=== PATIENT | male | born 1960 | race American Indian/Alaskan Native ===

== ENCOUNTER 2018-02-19 09:21 | Emergency (ER) | payer BC, SELFPAY ==
[2018-02-19 09:49] VITALS: BP 148/92; PULSE 100; RESP 13; TEMP 36.9; O2SAT 100
--- NOTE | 2018-02-19 09:52 | DI.RAD.S_ITS ---
PROCEDURE: XR FINGER RT MIN 2V INDICATIONS: r thumb TECHNIQUE: AP hand, 2 views of the right first finger(s) acquired. COMPARISON: None. FINDINGS: Bones: No fractures or dislocations. No suspicious bony lesions. Soft tissues: No suspicious soft tissue calcifications. IMPRESSION: No fracture. No osseous lesion. If there are persistent symptoms or clinical suspicion for pathology, then repeat radiographs or advanced imaging (CT, MRI or bone scan) should be considered for further evaluation. Dictated by: Aundrea Escudero MD, PhD on 02/19/2018 at 10:12 Approved by: Aundrea Escudero MD, PhD on 02/19/2018 at 10:13
--- NOTE | 2018-02-19 11:14 | ED.WOUNDLAC ---
HPI - Wound/Laceration General Chief Complaint: Wound/Laceration Stated Complaint: sliced finger with circular saw Time Seen by Provider: 02/19/18 10:14 History of Present Illness HPI narrative: Right thumb laceration with a table saw at the PIP joint just prior to arrival. Tendon is visualized. No bone is visualized. Denies numbness or tingling actually has full range of motion Related Data Previous Rx's Medication Instructions Recorded clotrimazole 1 gm TOPICAL BID #30 gm 09/22/17 triamcinolone acetonide 1 andrae TOPICAL BID #30 gm 09/22/17 cephalexin [Keflex] 500 mg PO TID #21 cap 02/19/18 hydrocodone-acetaminophen [[place]] 1 tab PO Q4-6H PRN #10 tab 02/19/18 Review of Systems Review of Systems GENERAL: Denies chills,fever HEENT: Denies throat pain RESPIRATORY: Denies dyspnea, cough, wheezing CARDIOVASCULAR: Denies chest pain, palpitations GASTROINTESTINAL: Denies nausea, vomiting MUSCULOSKELETAL: Denies extremity pain, injury SKIN: + laceration, see HPI NEUROLOGIC: Denies weakness, dizziness, headache, numbness 8 point review of systems is negative except for those stated above and HPI Exam Initial Vital Signs Initial Vital Signs: Vital Signs Temperature 98.5 F 02/19/18 09:49 Pulse Rate 100 H 02/19/18 09:49 Respiratory Rate 13 02/19/18 09:49 Blood Pressure 148/92 H 02/19/18 09:49 Pulse Oximetry 100 02/19/18 09:49 GENERAL: Well-appearing, well-nourished and in no acute distress. CARDIOVASCULAR: peripheral pulses in tact, cap refill <2 sec RESPIRATORY: No respiratory distress, speaks in full sentences without difficulty EXTREMITIES: Normal range of motion, no clubbing or edema. Neurovascularly intact NEUROLOGICAL: Cranial nerves II through XII grossly intact. Normal gait and speech. Left He is able to flex and extend fully good opposition abduction and abduction. Tendon is identified it does seem to be intact fascia around is partially lacerated. He has cap refill less than 2 sec good radial pulse. SKIN: Warm, dry, no petechiae, no rashes or lesions. Procedures Laceration Repair Laceration 1: Site: hand Side (If applicable): right Size (cm): 4 Description: stellate Depth: involves muscle layer Local Anesthetic: lidocaine 1% and bupivacaine 0.25% Amount of anesthesia used (mL): 4 Pre-repair: wound explored, irrigated extensively and deep structures intact Skin layer closed with: nylon Size (cm): 4-0 Number of sutures: 7 Technique: simple, interrupted Subcutaneous layer closed with: vicryl Size: 5-0 Number of sutures: 3 Number of sutures: 7 Course Orders Ordered: Discontinued Medications Diphtheria/Tetanus/Acell Pertussis (Adacel) 0.5 ml IM .ONCE ONE Stop: 02/19/18 11:34 Last Admin: 02/19/18 11:35 Dose: 0.5 ml Vital Signs - 8 hr 02/19/18 09:49 Temperature 98.5 F Pulse Rate 100 H Respiratory Rate 13 Blood Pressure 148/92 H Pulse Oximetry 100 MDM - Wound/Laceration Imaging Data Hand x-ray right: Radiologist's impression: PROCEDURE: XR FINGER RT MIN 2V INDICATIONS: r thumb TECHNIQUE: AP hand, 2 views of the right first finger(s) acquired. COMPARISON: None. FINDINGS: Bones: No fractures or dislocations. No suspicious bony lesions. Soft tissues: No suspicious soft tissue calcifications. IMPRESSION: No fracture. No osseous lesion. If there are persistent symptoms or clinical suspicion for pathology, then repeat radiographs or advanced imaging (CT, MRI or bone scan) should be considered for further evaluation. Dictated by: Aundrea Escudero MD, PhD on 02/19/2018 at 10:12 Discharge Plan Departure Patient Disposition: Home, Self-Care Clinical Impression: Laceration of skin of right thumb Discharge Date/Time: 02/19/18 12:16 Interventions: ED Discharge Assessment Last Done: 02/19/18 12:16 Instructions: DI for Laceration Repair -- Complex Suture, DI for Laceration Repair -- Finger Activity Restrictions/Additional Instructions: *You have been diagnosed with right thumb laceration *What to do: It does not appear you're tendon was involved removing it quite well but probably some fascia. Should follow up with hand surgeon none the last. Keep splint on his while active and and well sutures are in. -have sutures removed in about 7 days as with either Orthopedics or primary care provider -no soaking in water -they and cleaning with soap and water is recommended *Continue to take medications as directed -Keflex 500 mg 3 times a -[place] 1 tablet every 6 hr if needed for severe -Motrin 800 mg every 8 hr if needed for [id number] *Follow up with your primary care provider in 2-3 days, call Orthopedics Wednesday to schedule follow-up appointment for some a laceration *Return to ER if you should have any new, worsening or concerning symptoms Prescriptions: New hydrocodone-acetaminophen [[place]] 5-325 mg tablet 1 tab PO Q4-6H PRN (Reason: pain) Qty: 10 RF: 0 cephalexin [Keflex] 500 mg capsule 500 mg PO TID Qty: 21 RF: 0 No Action triamcinolone acetonide 0.5 % cream 1 andrae Topical BID Qty: 30 RF: 0 clotrimazole 1 % cream 1 gm Topical BID Qty: 30 RF: 0 Referrals: [facility] [Outside]
[2018-02-19] MEDS: TET,DIPH,PERTUSS(ACELL),VAC/PF 0.5 ML SYRINGE IM (11:35)
--- NOTE | 2018-02-19 12:14 | PC.NURSE ---
dressing to rt thumb, metal splint and kerlex.
[2018-02-19 12:16] VITALS: BP 126/91; PULSE 90; RESP 18; O2SAT 97
== END 2018-02-19 12:16 | disposition home or self-care (01) ==
PROVIDERS: Emergency Provider Emergency Medicine
DX: S61.011A Laceration without foreign body of right thumb without damage to nail, initial encounter (principal); W31.2XXA Contact with powered woodworking and forming machines, initial encounter
CPT/HCPCS: 12002; 73140; 90471; 99283; 90715

== ENCOUNTER → 2018-04-05 09:08 | Outpatient (CLI) | payer BC, SELFPAY | PROVIDERS: Visit Provider Urology | DX: R97.20 Elevated prostate specific antigen [PSA] (principal) | CPT/HCPCS: 36415; 84153 ==

== ENCOUNTER → 2018-10-12 09:16 | Outpatient (CLI) | payer BC, SELFPAY ==
[2018-10-13 14:49] LABS: PSA Free % 20 % (calc) (> 25); PSA, Total 4.9 ng/mL (< 4.1)
== END ==
PROVIDERS: Visit Provider Urology
DX: R97.20 Elevated prostate specific antigen [PSA] (principal)
CPT/HCPCS: 36415; 84153; 84154

== ENCOUNTER → 2019-01-16 07:08 | Outpatient (CLI) | payer BC, SELFPAY ==
[2019-01-16 10:30] LABS: Prostate Specific Antigen 4.08 ng/mL (0.10-4.00)
== END ==
PROVIDERS: Visit Provider Urology
DX: R97.20 Elevated prostate specific antigen [PSA] (principal)
CPT/HCPCS: 36415; 84153

== ENCOUNTER → 2019-07-05 15:09 | Outpatient (CLI) | payer BC, SELFPAY ==
[2019-07-05 16:28] LABS: Cholesterol 222 mg/dL (140-199); HDL Cholesterol 36 mg/dL (40-60); LDL Cholesterol Calculated 145 mg/dL (<100); Triglycerides 204 mg/dL (35-150)
[2019-07-05 16:44] LABS: Vitamin D 25 Hydroxy (D3) 24.9 ng/mL (30.0-100.0)
== END ==
PROVIDERS: PCP Student in an Organized Health Care Education/Training Program; Visit Provider Student in an Organized Health Care Education/Training Program
DX: Z13.220 Encounter for screening for lipoid disorders (principal); E55.9 Vitamin D deficiency, unspecified
CPT/HCPCS: 36415; 80061; 82306

== ENCOUNTER → 2020-01-15 08:22 | Outpatient (CLI) | payer BC, SELFPAY ==
[2020-01-16 08:27] LABS: PSA Free % 23.9 % (.); PSA, Total 3.3 ng/mL (0.0-4.0)
== END ==
PROVIDERS: PCP Student in an Organized Health Care Education/Training Program; Referring Provider Urology; Visit Provider Urology
DX: R97.20 Elevated prostate specific antigen [PSA] (principal)
CPT/HCPCS: 36415; 84153; 84154

== ENCOUNTER → 2020-08-19 07:53 | Outpatient (CLI) | payer BC, SELFPAY ==
[2020-08-19 12:18] LABS: Prostate Specific Antigen 3.98 ng/mL (0.10-4.00)
== END ==
PROVIDERS: PCP Student in an Organized Health Care Education/Training Program; Referring Provider Urology; Visit Provider Urology
DX: R97.20 Elevated prostate specific antigen [PSA] (principal)
CPT/HCPCS: 36415; 84153

== ENCOUNTER → 2021-08-25 09:12 | Outpatient (CLI) | payer BC, SELFPAY ==
[2021-08-26 05:37] LABS: PSA Free % 28.4 % (.); PSA, Total 3.2 ng/mL (0.0-4.0)
== END ==
PROVIDERS: PCP Student in an Organized Health Care Education/Training Program; Referring Provider Physician Assistant Medical; Visit Provider Physician Assistant Medical
DX: R97.20 Elevated prostate specific antigen [PSA] (principal)
CPT/HCPCS: 36415; 84153; 84154

== ENCOUNTER → 2022-09-21 07:43 | Outpatient (CLI) | payer BC, SELFPAY | PROVIDERS: PCP Student in an Organized Health Care Education/Training Program; Referring Provider Physician Assistant Medical; Visit Provider Physician Assistant Medical | DX: R97.20 Elevated prostate specific antigen [PSA] (principal) | CPT/HCPCS: 36415; 84153 ==

== ENCOUNTER 2023-08-08 17:42 | Emergency (ER) | payer MEDICARE, BC, SELFPAY ==
[2023-08-08 17:45] VITALS: BP 155/89; PULSE 93; RESP 18; TEMP 37.2; O2SAT 97; BMI 27.7
--- NOTE | 2023-08-08 18:18 | ED.EPISTAXIS ---
HPI - Epistaxis <Katy Messer PA-C - Last Filed: 08/08/23 18:25> General Chief complaint: Nasal Problem Stated complaint: bloody nose Time Seen by Provider: 08/08/23 18:15 Source: patient Mode of arrival: Ambulatory History of Present Illness HPI Narrative: Patient is a 63-year-old male who presents with nosebleed. He reports a history of nosebleeds. He had a cauterization in the left nare about 12 years ago. He had a small amount of bleeding this morning and then a larger nosebleed this afternoon after he gently blew his nose. He notes that there was bleeding from both nares today. The bleeding has stopped since he got here after applying pressure. He bled for about 15 minutes today. He wonders if his house is too try, although he monitors the humidity and it is about 55%. He has noticed that sleeping near the furnace vent makes his nosebleeds worsened so he sleeps in the living room now. Last year he used a nasal moisturizing spray, which may have helped. His last nosebleed was 2.5 months ago. He does not take any blood thinners, including no aspirin and no NSAIDs. He does not drink alcohol. He denies easy bruising. Related Data Home Medications Medication Instructions Recorded Confirmed dutasteride 0.5 mg capsule 0.5 mg PO DAILY 07/05/19 07/05/19 tamsulosin 0.4 mg capsule 0.4 mg PO DAILY 07/05/19 07/05/19 Previous Rx's Medication Instructions Recorded pravastatin 20 mg tablet 20 mg PO BEDTIME #90 tabs 07/06/19 Allergies Allergy/AdvReac Type Severity Reaction Status Date / Time No Known Drug Allergies Allergy Verified 08/08/23 17:45 Review of Systems <Katy Messer PA-C - Last Filed: 08/08/23 18:25> Review of Systems ROS Unobtainable: All systems reviewed & are unremarkable except as noted in HPI and below Patient History <Katy Messer PA-C - Last Filed: 08/08/23 18:25> Family History Father Stroke Social History Smoking Status: Never smoker Smoking Status: Never smoker Substance Use Type: does not use Exam <Katy Messer PA-C - Last Filed: 08/08/23 18:25> Narrative Exam Narrative: GENERAL: 63 year old patient appears stated age. Well-developed patient, very anxious. NEURO: AOx3. HEAD: Atraumatic. Normocephalic. EYES: Pupils equal round and reactive. Extraocular motions intact. No scleral icterus. No injection or drainage. ENT: Nose without bleeding or purulent drainage. Airway patent. No active bleeding or oozing, normal anatomy in bilateral nares. RESPIRATORY: No distress. EXTREMITIES: No edema or joint tenderness. SKIN: No rash or erythema of visible areas. No bruising. Initial Vital Signs Initial Vital Signs: Vital Signs Temperature 98.9 F 08/08/23 17:45 Pulse Rate 93 H 08/08/23 17:45 Respiratory Rate 18 08/08/23 17:45 Blood Pressure 155/89 H 08/08/23 17:45 Pulse Oximetry 97 08/08/23 17:45 Oxygen Delivery Method Room Air 08/08/23 17:45 <Violetta Williamson DO - Last Filed: 08/08/23 21:49> Initial Vital Signs Initial Vital Signs: Vital Signs Temperature 98.9 F 08/08/23 17:45 Pulse Rate 93 H 08/08/23 17:45 Respiratory Rate 18 08/08/23 17:45 Blood Pressure 155/89 H 08/08/23 17:45 Pulse Oximetry 97 08/08/23 17:45 Oxygen Delivery Method Room Air 08/08/23 17:45 Course <Katy Messer PA-C - Last Filed: 08/08/23 18:25> Vital Signs Vital signs: Vital Signs - 8 hr 08/08/23 17:45 08/08/23 18:19 Temperature 98.9 F Pulse Rate 93 H 92 H Respiratory Rate 18 Blood Pressure 155/89 H 126/76 Pulse Oximetry 97 100 Oxygen Delivery Method Room Air Room Air <Violetta Williamson DO - Last Filed: 08/08/23 21:49> Vital Signs Vital signs: Vital Signs - 8 hr 08/08/23 17:45 08/08/23 18:19 Temperature 98.9 F Pulse Rate 93 H 92 H Respiratory Rate 18 Blood Pressure 155/89 H 126/76 Pulse Oximetry 97 100 Oxygen Delivery Method Room Air Room Air MDM - Epistaxis <Katy Messer PA-C - Last Filed: 08/08/23 18:25> [facility] Narrative Medical decision making narrative: Patient is a estefani 63-year-old male who presents after a bilateral nosebleed earlier today. The nosebleed stopped after applying pressure at home. He was very nervous because it was on both sides which has not happened before. He does have a history of nosebleed requiring cauterization by ENT. He has no medications or risk factors for excessive bleeding. His exam is reassuring today. Long discussion with the patient and his significant other regarding management of nosebleeds. Patient is very anxious but it seems to appreciate the information. Discussed following up with the primary care if nosebleeds continue to check labs. Patient's symptoms improved over duration of stay with above-stated therapies. Findings and discharge diagnosis discussed with patient/family followed by verbalization of understanding Return precautions discussed with patient/family whom verbalize understanding of diagnosis and plan Discharge Plan Departure Patient Disposition: Home Clinical Impression: Epistaxis Instructions: DI for Nosebleed Activity Restrictions/Additional Instructions: *You have been diagnosed with nosebleed. I do not see any active bleeding or injury today. The next time you have a nosebleed, sit up straight, relax and pinch her nose for 20 minutes without checking to see if it is still bleeding. After 20 minutes, if it is still bleeding, use Afrin nasal spray in 1 or both nostrils which may help stop the bleeding then immediately reapply pressure for an additional 20 minutes without checking. After 2 cycles of 20 minutes and the Afrin, if you are still bleeding, you should come to the emergency room. Remember, a nosebleed is rarely in emergency and it is not an emergency at home, unless the bleeding will not stop. If the bleeding does not stop, comes to the emergency room. If you continue to have frequent nosebleeds over the next several months, please make an appointment with your primary care provider to have labs checked. Rarely, there is something wrong with the way your blood clots and this could affect nosebleeds. I do not feel these labs are necessary today. It was a pleasure meeting you! *What to do: *Please continue to take your regular medications as directed. [ ] New medication prescriptions sent to your pharmacy: [ ] [ ] New medication written as a paper prescription [x] No new medications given *Please follow up with your primary care provider in 2-3 days, call for an appointment. Let them know you were seen in the Emergency Department and that we ask that you be seen in follow up. We will electronically transmit a record of today's note if your PCP is in our system *If you do not have a primary care provider please contact the [facility] Resource line at [phone]. They will ask some questions about your medical history and help get you set up with a doctor in the community. *Return to Emergency Department if you should have any new, worsening or concerning symptoms, such as [fever greater than 101 F, shaking chills, worsening pain, persistent vomiting or other concerning symptoms]. Prescriptions: No Action tamsulosin 0.4 mg capsule 0.4 mg PO DAILY dutasteride 0.5 mg capsule 0.5 mg PO DAILY pravastatin 20 mg tablet 20 mg PO BEDTIME Qty: 90 0RF Referrals: Daniel Self MD [Primary Care Provider] - Stand Alone Forms: Patient Portal/API ED Sign-out <Violetta Williamson, - Last Filed: 08/08/23 21:49> Cosign ED Attending Damionature Attestation: I was available for consultation.
[2023-08-08 18:19] VITALS: BP 126/76; PULSE 92; O2SAT 100
== END 2023-08-08 18:20 | disposition home or self-care (01) ==
PROVIDERS: Emergency Provider Physician Assistant; PCP Student in an Organized Health Care Education/Training Program
DX: R04.0 Epistaxis (principal)
CPT/HCPCS: 99281; 99282

== ENCOUNTER → 2023-08-11 07:16 | Outpatient (CLI) | payer MEDICARE, BC, SELFPAY ==
[2023-08-11 07:55] LABS: INR 1.1 (0.9-1.3); Prothrombin Time 12.7 SECONDS (9.4-12.5)
[2023-08-11 08:00] LABS: Add Manual Diff / Slide Review NO; Basophils Absolute Auto 0 /uL (0-100); Basophils Percent Auto 0.7 % (0-2); Eosinophils Absolute Auto 0 /uL (0-450); Eosinophils Percent Auto 0.4 % (2-4); Hematocrit 44.5 % (41-53); Hemoglobin 15.3 g/dL (13.5-17.5); Lymphocytes Absolute Auto 900 /uL (1100-4500); Lymphocytes Percent Auto 20.9 % (25-40); Mean Corpuscular HGB Conc 34.4 % (30-36); Mean Corpuscular Hemoglobin 31.6 PG (26-34); Monocytes Absolute Auto 400 /uL (0-900); Monocytes Percent Auto 9.5 % (3-14); Neutrophils Absolute Auto 3000 /uL (1500-7000); Neutrophils Percent Auto 68.5 % (50-75); Platelet Count 161 X10^3/uL (150-400); Red Blood Cell Count 4.84 X10^6/uL (4.5-5.9); Red Cell Distribution Width 13.2 % (11.6-14.8); White Blood Cell Count 4.3 X10^3/uL (4.5-11.0)
[2023-08-11 08:09] LABS: Alanine Aminotransferase 17 IU/L (<50); Albumin Globulin Ratio 1.1 (1.0-2.8); Alkaline Phosphatase 75 U/L (38-126); Aspartate Aminotransferase 22 IU/L (17-59); BUN Creatinine Ratio 13.2 (6-22); Bilirubin Total 1.2 mg/dL (0.2-1.3); Blood Urea Nitrogen 12 mg/dL (9-20); Calcium 8.9 mg/dL (8.4-10.2); Carbon Dioxide 25 mmol/L (22-32); Chloride 106 mmol/L (98-107); Cholesterol 184 mg/dL (140-199); Estimated Glomerular Filt Rate > 60 mL/min (>60); Globulin 3.5 g/dL (1.7-4.1); Glucose 110 mg/dL (80-110); HDL Cholesterol 43 mg/dL (40-60); HEMOLYSIS < 15 (0-50); LDL Cholesterol Calculated 123 mg/dL (<100); Sodium 138 mmol/L (137-145); Total Protein 7.5 g/dL (6.3-8.2); Triglycerides 89 mg/dL (35-150)
== END ==
PROVIDERS: PCP Family Medicine; Referring Provider Family Medicine; Visit Provider Family Medicine
DX: R04.0 Epistaxis (principal); E66.9 Obesity, unspecified
CPT/HCPCS: 36415; 80053; 80061; 85025; 85610

== ENCOUNTER 2023-08-13 10:42 | Emergency (ER) | payer MEDICARE, BC, SELFPAY ==
[2023-08-13 10:49] VITALS: BP 138/83; PULSE 97; RESP 15; TEMP 36.6; O2SAT 98; BMI 27.7
--- NOTE | 2023-08-13 12:19 | ED.EPISTAXIS ---
HPI - Epistaxis General Chief complaint: Nasal Problem Stated complaint: nose bleeds 3rd one in 5 days Time Seen by Provider: 08/13/23 12:13 Source: patient Mode of arrival: Ambulatory History of Present Illness HPI Narrative: Patient is a 63-year-old male history of BPH presents today with nosebleeds. He has had 3 in the last 5 days. He was seen evaluated here in the ED 5 days ago. He had a nosebleed this morning he was having a bowel movement. He has Afrin he has been using moisturizer. It always come left near. He reports previously had cauterization on the left side. He says that the nosebleeds typically lasts for about 25 minutes and then stopped with pressure. He is not actively bleeding now. He is an appointment with ENT scheduled for early next week. Otherwise not on antiplatelet or anticoagulation medication. Related Data Home Medications Medication Instructions Recorded Confirmed dutasteride 0.5 mg capsule 0.5 mg PO DAILY 07/05/19 08/10/23 tamsulosin 0.4 mg capsule 0.4 mg PO DAILY 07/05/19 08/10/23 Allergies Allergy/AdvReac Type Severity Reaction Status Date / Time No Known Drug Allergies Allergy Verified 08/13/23 10:49 Patient History Medical History BPH (benign prostatic hyperplasia) Mixed hyperlipidemia Vitamin D deficiency Family History Father Stroke Social History marital status: unmarried,living together number of children: 1 occupational status: other (retired [employer]) Smoking Status: Never smoker Smoking Status: Never smoker alcohol intake frequency: holidays/special occasions only Substance Use Type: does not use Exam Initial Vital Signs Initial Vital Signs: Vital Signs Temperature 97.9 F 08/13/23 10:49 Pulse Rate 97 H 08/13/23 10:49 Respiratory Rate 15 08/13/23 10:49 Blood Pressure 138/83 08/13/23 10:49 Pulse Oximetry 98 08/13/23 10:49 Oxygen Delivery Method Room Air 08/13/23 10:49 GENERAL: Well-appearing, well-nourished and in no acute distress. NOSE: No active bleeding some dried blood seen in the in the left neck CARDIOVASCULAR: peripheral pulses in tact, cap refill <2 sec RESPIRATORY: No respiratory distress, speaks in full sentences without difficulty EXTREMITIES: Normal range of motion, no clubbing or edema. Neurovascularly intact NEUROLOGICAL: Cranial nerves II through XII grossly intact. Normal gait and speech. SKIN: Warm, dry, no petechiae, no rashes or lesions. Course Vital Signs Vital signs: Vital Signs - 8 hr 08/13/23 10:49 Temperature 97.9 F Pulse Rate 97 H Respiratory Rate 15 Blood Pressure 138/83 Pulse Oximetry 98 Oxygen Delivery Method Room Air MDM - Epistaxis MDM Narrative Medical decision making narrative: Patient has recurrent epistaxis from the left side which quickly resolved. Not actively bleeding now an appointment with ENT to follow-up next week. At this time no need for any further treatment or workup. Discharge Plan Departure Patient Disposition: Home Clinical Impression: Epistaxis Instructions: DI for Nosebleed Activity Restrictions/Additional Instructions: *You have been diagnosed with epistaxis *What to do: At this time continue nasal clamp Afrin as needed ice. Bleeding should stop in under 60 minutes however if it continues for 60 minutes or is profusely draining down your throat then come to the ED. Follow-up with ENT as scheduled next week *Continue to take medications as directed *Follow up with your primary care provider in 2-3 days or call [phone] *Return to ER if you should have as stated above persistent bleeding or any new, worsening or concerning symptoms Prescriptions: No Action tamsulosin 0.4 mg capsule 0.4 mg PO DAILY dutasteride 0.5 mg capsule 0.5 mg PO DAILY Referrals: Cait Giles MD [Primary Care Provider] - Stand Alone Forms: Patient Portal/API
== END 2023-08-13 12:27 | disposition home or self-care (01) ==
PROVIDERS: Emergency Provider Emergency Medicine; PCP Family Medicine
DX: R04.0 Epistaxis (principal)
CPT/HCPCS: 99281; 99282

== ENCOUNTER → 2023-09-04 07:30 | Outpatient (CLI) | payer MEDICARE, BC, SELFPAY ==
[2023-09-04 09:05] LABS: Prostate Specific Antigen 3.67 ng/mL (0.10-4.00)
== END ==
PROVIDERS: PCP Family Medicine; Referring Provider Physician Assistant Medical; Visit Provider Physician Assistant Medical
DX: R97.20 Elevated prostate specific antigen [PSA] (principal)
CPT/HCPCS: 36415; 84153

== ENCOUNTER → 2023-10-20 07:20 | Outpatient (CLI) | payer MEDICARE, SELFPAY ==
[2023-10-20 07:47] LABS: Add Manual Diff / Slide Review NO; Basophils Absolute Auto 0 /uL (0-100); Basophils Percent Auto 1.2 % (0-2); Eosinophils Absolute Auto 0 /uL (0-450); Eosinophils Percent Auto 0.2 % (2-4); Hematocrit 45.6 % (41-53); Hemoglobin 15.6 g/dL (13.5-17.5); Lymphocytes Absolute Auto 1300 /uL (1100-4500); Lymphocytes Percent Auto 30.4 % (25-40); Mean Corpuscular HGB Conc 34.2 % (30-36); Mean Corpuscular Hemoglobin 31.5 PG (26-34); Monocytes Absolute Auto 400 /uL (0-900); Monocytes Percent Auto 9.2 % (3-14); Neutrophils Absolute Auto 2400 /uL (1500-7000); Platelet Count 154 X10^3/uL (150-400); Red Blood Cell Count 4.96 X10^6/uL (4.5-5.9); Red Cell Distribution Width 13.2 % (11.6-14.8); White Blood Cell Count 4.1 X10^3/uL (4.5-11.0)
[2023-10-20 08:11] LABS: Cholesterol 194 mg/dL (140-199); HDL Cholesterol 48 mg/dL (40-60); LDL Cholesterol Calculated 120 mg/dL (<100); Triglycerides 129 mg/dL (35-150)
== END ==
PROVIDERS: PCP Family Medicine; Referring Provider Family Medicine; Visit Provider Family Medicine
DX: E78.00 Pure hypercholesterolemia, unspecified (principal); D72.819 Decreased white blood cell count, unspecified
CPT/HCPCS: 36415; 80061; 85025

== ENCOUNTER 2023-10-29 08:51 | Emergency (ER) | payer MEDICARE, OTHER, SELFPAY ==
[2023-10-29 09:00] VITALS: O2SAT 96
[2023-10-29 09:01] VITALS: BP 145/91; PULSE 118; O2SAT 97
[2023-10-29 09:11] VITALS: BP 145/91; PULSE 110; RESP 14; TEMP 36.5; O2SAT 97; BMI 27.3
[2023-10-29 09:30] VITALS: BP 143/82; PULSE 101; RESP 18; O2SAT 95
--- NOTE | 2023-10-29 09:36 | ED.EPISTAXIS ---
HPI - Epistaxis General Chief complaint: Nasal Problem Stated complaint: nose bleed Time Seen by Provider: 10/29/23 09:31 Source: patient Mode of arrival: Ambulatory History of Present Illness HPI Narrative: Patient is a healthy 63-year-old male who presents with recurrent epistaxis of the left knee. He was seen here a couple of times in August for the same but it was never actively bleeding. He actually saw Dr. Martinez ENT where he had it cauterized in the office. He reports that since then he really has not had any problems but today woke up and started having bleeding out of the same side since about 830 this morning. It has not really. He has been holding pressure. Although now upon exam seem to have slowed. Mild drip. He does not want a nasal clamp. Related Data Home Medications Medication Instructions Recorded Confirmed dutasteride 0.5 mg capsule 0.5 mg PO DAILY 07/05/19 08/10/23 tamsulosin 0.4 mg capsule 0.4 mg PO DAILY 07/05/19 08/10/23 Allergies Allergy/AdvReac Type Severity Reaction Status Date / Time Sulfa (Sulfonamide Allergy Unknown Verified 10/29/23 09:14 Antibiotics) Patient History Medical History (Updated 10/29/23 @ 09:45 by Violetta Williamson DO) Prostate nodule BPH (benign prostatic hyperplasia) Mixed hyperlipidemia Vitamin D deficiency Family History (Updated 09/08/23 @ 20:02 by Soledad Arroyo) Father Stroke Mother Diabetes mellitus Social History marital status: unmarried,living together number of children: 1 occupational status: other (retired [employer]) Smoking Status: Never smoker Smoking Status: Never smoker alcohol intake frequency: holidays/special occasions only Substance Use Type: does not use Exam Initial Vital Signs Initial Vital Signs: Vital Signs Pulse Oximetry 96 10/29/23 09:00 GENERAL: Well-appearing, well-nourished and in no acute distress. CARDIOVASCULAR: peripheral pulses in tact, cap refill <2 sec RESPIRATORY: No respiratory distress, speaks in full sentences without difficulty NOSE: Mild left drip no active bleeding not going down throat EXTREMITIES: Normal range of motion, no clubbing or edema. Neurovascularly intact NEUROLOGICAL: Cranial nerves II through XII grossly intact. Normal gait and speech. SKIN: Warm, dry, no petechiae, no rashes or lesions. Course Vital Signs Vital signs: Vital Signs - 8 hr 10/29/23 09:00 10/29/23 09:01 10/29/23 09:01 Temperature Pulse Rate 118 H Respiratory Rate Blood Pressure 145/91 H Pulse Oximetry 96 97 Oxygen Delivery Method 10/29/23 09:11 10/29/23 09:30 10/29/23 09:30 Temperature 97.7 F Pulse Rate 110 H 101 H Respiratory Rate 14 18 Blood Pressure 145/91 H 143/82 H Pulse Oximetry 97 95 Oxygen Delivery Method Room Air 10/29/23 10:00 10/29/23 10:00 Temperature Pulse Rate 93 H Respiratory Rate 15 Blood Pressure 138/76 Pulse Oximetry 95 Oxygen Delivery Method MDM - Epistaxis MDM Narrative Medical decision making narrative: Patient is 63-year-old male who presents today with recurrent left epistaxis. He is not wanting a nasal clip not profusely bleeding not requiring balloon. Watchful waiting seems to have improved. Discharge Plan Departure Patient Disposition: Home Clinical Impression: Epistaxis Instructions: DI for Nosebleed Activity Restrictions/Additional Instructions: *You have been diagnosed with epistaxis *What to do: At this time continue to hold pressure use Afrin as needed. You may need to see Dr. Martinez again *Continue to take medications as directed *Follow up with your primary care provider in 2-3 days or call [phone] *Return to ER if you should have persistent bleeding despite pressure at or any new, worsening or concerning symptoms Prescriptions: No Action tamsulosin 0.4 mg capsule 0.4 mg PO DAILY dutasteride 0.5 mg capsule 0.5 mg PO DAILY Referrals: Aubrey Martinez MD [Physician] - Cait Giles MD [Primary Care Provider] - Stand Alone Forms: Patient Portal/API
[2023-10-29 10:00] VITALS: BP 138/76; PULSE 93; RESP 15; O2SAT 95
== END 2023-10-29 10:29 | disposition home or self-care (01) ==
PROVIDERS: Emergency Provider Emergency Medicine; PCP Family Medicine
DX: R04.0 Epistaxis (principal)
CPT/HCPCS: 99281

== ENCOUNTER → 2024-08-21 06:14 | Outpatient (CLI) | payer MEDICARE, OTHER, SELFPAY ==
[2024-08-21 08:51] LABS: Prostate Specific Antigen 2.94 ng/mL (0.10-4.00)
== END ==
PROVIDERS: PCP Family Medicine; Referring Provider Physician Assistant Medical; Visit Provider Physician Assistant Medical
DX: R97.20 Elevated prostate specific antigen [PSA] (principal)
CPT/HCPCS: 36415; 84153

== ENCOUNTER → 2025-09-03 06:03 | Outpatient (CLI) | payer MEDICARE, OTHER, SELFPAY ==
[2025-09-03 08:36] LABS: Prostate Specific Antigen 4.01 ng/mL (0.10-4.00)
== END ==
PROVIDERS: PCP Family Medicine; Referring Provider Physician Assistant Medical; Visit Provider Physician Assistant Medical
DX: R97.20 Elevated prostate specific antigen [PSA] (principal); R39.9 Unspecified symptoms and signs involving the genitourinary system
CPT/HCPCS: 36415; 84153